=== PATIENT | male | born 1995 | race Caucasian/White ===

== ENCOUNTER 2019-02-21 02:43 | Emergency (ER) | payer OTHER ==
[2019-02-21 02:55] VITALS: BP 110/62
--- NOTE | 2019-02-21 03:29 | EDPHY ---
H & P Stated Complaint: genital rash, lump and pain x 2 days Time Seen by Provider: 02/21/19 02:58 HPI/ROS: Chief Complaint: Rash HPI: 23-year-old male noticed several bumps on his penis today. They are not painful. He has not had any discharge. There is a little bit of scabbing. Does not have a history of similar in the past. He does have a new sexual partner he has been with for about the past month. She is here present. She does not have a history of any sexually transmitted infections. He has had Chlamydia about 8 years ago. No fevers or chills. No urethral discharge. No urinary urgency or frequency. He did have some chafing was scrotum several days ago but there were no vesicles or other lesions in this has since resolved. ROS: 10 systems were reviewed and were negative except those elements noted in the HPI. PMH: Neurogenic bladder in the past Social History: No smoking, no alcohol, no recreational drug use Family History: non-contributory Physical Exam: Gen: Awake, Alert, No Distress HEENT: Nose: no rhinorrhea Eyes: PERRLA, EOMI Mouth: Moist mucosa Neck: Supple, no JVD Chest: nontender, lungs clear to auscultation Heart: S1, S2 normal, no murmur Abd: Soft, non-tender, no guarding General: Patient has 5/6 1 mm lesions on the dorsal shaft of his penis. There is no erythematous base. There is a tiny amount of scabbing over each 1. Each lesion is less than 1 mm. There is no confluence. There are no vesicles. There is no discharge. It is not tender. Back: no CVA tenderness, no midline tenderness Ext: no edema, non-tender Skin: no rash Neuro: CN II-XII intact, Sensation grossly intact, Strength 5/5 in bilateral upper and lower extremities - Personal History Current Tetanus/Diphtheria Vaccine: Unsure - Medical/Surgical History Hx Asthma: No Hx Chronic Respiratory Disease: No Hx Diabetes: No Hx Cardiac Disease: No Hx Renal Disease: No Hx Cirrhosis: No Hx Alcoholism: No Hx HIV/AIDS: No Hx Splenectomy or Spleen Trauma: No Other PMH: anxiety, urinary retention - Social History Smoking Status: Former smoker Constitutional: Initial Vital Signs Temperature (C) 37.0 C 02/21/19 02:48 Heart Rate 92 02/21/19 02:48 Respiratory Rate 18 02/21/19 02:48 Blood Pressure 110/62 02/21/19 02:48 O2 Sat (%) 94 02/21/19 02:48 O2 Delivery Mode Room Air Allergies/Adverse Reactions: No Known Allergies Allergy (Unverified 02/21/19 02:47) Home Medications: Medication Instructions Recorded Xanax 02/21/19 Medical Decision Making ED Course/Re-evaluation: 23-year-old male with several lesions on the dorsum of his penis. Does not appear to be herpetic at this time however could be early. He does not have any vesicles or fluid. There is no fluid that could be sent for testing. Patient has an appoint with primary care physician tomorrow. I have instructed him that I would lesions should get larger. He form vesicles or fluid he should have these tested for viral cultures. No other symptoms suggestive of STI. Patient will follow up with primary care physician tomorrow as scheduled. Departure - Departure Disposition: Home, Routine, Self-Care Clinical Impression: Rash Condition: Good Instructions: Acute Rash (ED) Additional Instructions: Follow up with primary care physician tomorrow as scheduled. Referrals: LEILA RANDHAWA [Other] - As per Instructions
== END 2019-02-21 03:36 | disposition home or self-care (01) ==
DX: R21 Rash and other nonspecific skin eruption (principal)